=== PATIENT | female | born 1990 | race Caucasian/White ===

== ENCOUNTER 2021-01-28 16:03 | Emergency (ER) | payer OTHER ==
[~2021-01-28] VITALS: Ht 149.9 cm; Wt 81.2 kg
[2021-01-28 16:03] VITALS: BP 131/94
--- NOTE | 2021-01-28 16:10 | NUR ---
PT W/C ASSISTED TO LOBBY
--- NOTE | 2021-01-28 17:01 | NUR ---
PT TAKEN TO CT VIA W/C
--- NOTE | 2021-01-28 17:51 | NUR ---
PT W/C ASSISTED TO BED 6.
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
--- NOTE | 2021-01-28 18:08 | NUR ---
DR LEON AT BEDSIDE EXAMINING PT
[2021-01-28] MEDS ORDERED: ONDA-24 SL (19:02)
--- NOTE | 2021-01-28 19:09 | NUR ---
Pt report given to CRISTIANA ROBB. Transfer of care at this time.
--- NOTE | 2021-01-28 19:10 | NUR ---
RECEIVED REPORT FROM CEZAR MORALES FOR CONTINUITY OF CARE.
--- NOTE | 2021-01-28 19:15 | NUR ---
Patient discharged with v/s stable. Written and verbal after care instructions given and explained. Patient alert, oriented and verbalized understanding of instructions. Wheel Chair Assisted with to car. All questions addressed prior to discharge. ID band removed. Patient advised to follow up with PMD. Rx of ZOFRAN given. Patient educated on indication of medication including possible reaction and side effects. Opportunity to ask questions provided and answered.
[2021-01-28] MEDS: MORPHINE SULFATE 4 MG/ML SYR IM ONE (19:17)
== END 2021-01-28 19:15 | disposition home or self-care (01) ==
LOC: MED 16:03
DX: S09.90XA Unspecified injury of head, initial encounter (principal); E11.9 Type 2 diabetes mellitus without complications; Z88.6 Allergy status to analgesic agent; Z88.5 Allergy status to narcotic agent; V98.8XXA Other specified transport accidents, initial encounter; Y93.89 Activity, other specified; Y92.89 Other specified places as the place of occurrence of the external cause; Y99.8 Other external cause status
CPT/HCPCS: 70450; 81002; 81025; 96372; 99284; J2270